=== PATIENT | female | born 1945 | race Caucasian/White ===

== ENCOUNTER 2016-11-07 08:36 | Day surgery (SDC) | payer MEDICARE, OTHER ==
[~2016-11-07 08:36] MED LIST: Lactated Ringers 1,000 ML IV SCH
[2016-11-07 09:14] VITALS: BP 151/66
[2016-11-07] MEDS ORDERED: Citric Acid/Sodium Citrate Solution 30 ML Cup PO ONE (10:51)
[2016-11-07] MEDS ORDERED: Citric Acid/Sodium Citrate Solution 30 ML Cup ONE (10:55)
[2016-11-07] MEDS ORDERED: fentaNYL 100 MCG/2 ML SDV ONE (11:08)
[2016-11-07] MEDS ORDERED: Propofol 200 MG/20 ML SDV ONE (11:08)
--- NOTE | 2016-11-07 15:33 | OR ---
DATE OF SURGERY: 11/07/2016. REFERRING PROVIDER: Giana New, PRE-OPERATIVE DIAGNOSES: History of previous colon polyps. Last colonoscopy was about 7 years ago, per the patient's report. No known family history of colon cancer or colon polyps. POST-OPERATIVE DIAGNOSES: Normal colonoscopy. PROCEDURE: Colonoscopy. SURGEON: Maverick Vazquez M.D. ANESTHESIA: Monitored anesthesia care. BOWEL PREP: Good. DESCRIPTION OF OPERATION: Shirlene is a 71-year-old female. The patient was brought to the endoscopy suite after discussing risks and benefits of the procedure. Informed consent was obtained for conscious sedation and colonoscopy with or without biopsy and/or polypectomy. We also discussed possibility of missed lesions. Pre-procedure exam was unremarkable. IV, oxygen, and monitors were placed. The patient was placed in the left lateral decubitus position. Sedation was administered and a digital rectal exam was performed which was unremarkable. Colonoscope was passed into the rectum and slowly advanced all the way to the cecum. Cecum was viewed and photographed. The colonoscope was slowly withdrawn and the mucosa was closed observed in a direct circumferential manner. Ascending colon was unremarkable. Transverse colon was unremarkable. Descending colon was unremarkable. Sigmoid colon was unremarkable. Retroflexion was performed. Rectal mucosa was unremarkable. Scope was removed. The patient tolerated the procedure well. The patient was monitored until that baseline status. Discharge instructions were reviewed and the patient was discharged in good condition. COMPLICATIONS: None. TOTAL TIME: 15 minutes. ESTIMATED BLOOD LOSS: None. RECOMMENDATIONS/FOLLOW-UP: Given her previous history of polyps in the distant past, would consider repeat in 5 to 7 years. I would like to kindly thank Giana New for this referral. DMB: 11/07/2016 11:38:32 MODL: 11/07/2016 12:32:08 /[id number]
== END 2016-11-07 12:29 | disposition home or self-care (01) ==
LOC: VM.SDS 08:36
PROVIDERS: ATTEND Family Medicine
DX: Z12.11 Encounter for screening for malignant neoplasm of colon (principal); Z86.010 Personal history of colon polyps; I10 Essential (primary) hypertension; E78.00 Pure hypercholesterolemia, unspecified; E03.9 Hypothyroidism, unspecified; F32.9 Major depressive disorder, single episode, unspecified; K21.9 Gastro-esophageal reflux disease without esophagitis
CPT/HCPCS: 00810; A9270; G0105; J2704; J3010; J7120

== ENCOUNTER 2022-09-05 10:08 | Day surgery (SDC) | payer MEDICARE, OTHER ==
[2022-09-05] MEDS: Lactated Ringers 1,000 ML IV SCH (10:24)
[2022-09-05] MEDS ORDERED: fentaNYL 100 MCG/2 ML SDV ONE (11:46)
[2022-09-05] MEDS ORDERED: Propofol 200 MG/20 ML SDV ONE (11:46)
[2022-09-05 13:43] VITALS: BP 153/60; PULSE 52
== END 2022-09-05 13:40 | disposition home or self-care (01) ==
LOC: VM.SDS 10:08
PROVIDERS: ATTEND Family Medicine
DX: Z12.11 Encounter for screening for malignant neoplasm of colon (principal); D12.7 Benign neoplasm of rectosigmoid junction; D12.3 Benign neoplasm of transverse colon; I10 Essential (primary) hypertension; E03.9 Hypothyroidism, unspecified; E78.00 Pure hypercholesterolemia, unspecified; R73.9 Hyperglycemia, unspecified; M10.9 Gout, unspecified; K21.9 Gastro-esophageal reflux disease without esophagitis; F32.A Depression, unspecified; E53.8 Deficiency of other specified B group vitamins; Z86.010 Personal history of colon polyps; Z98.890 Other specified postprocedural states; Z90.710 Acquired absence of both cervix and uterus; Z79.899 Other long term (current) drug therapy; Z79.82 Long term (current) use of aspirin; Z79.890 Hormone replacement therapy
CPT/HCPCS: 00811; 88305; J2704; J3010; J7120